=== PATIENT | male | born 1980 | race Caucasian/White ===

== ENCOUNTER 2016-12-23 02:58 | Emergency (ER) ==
[2016-12-23 03:28] VITALS: BP 170/109; TEMP 97.6; BMI 26.4
== END 2016-12-23 03:33 | disposition left against medical advice (07) ==
LOC: ED 02:58
DX: S99.912A Unspecified injury of left ankle, initial encounter (principal); S99.922A Unspecified injury of left foot, initial encounter; V09.9XXA Pedestrian injured in unspecified transport accident, initial encounter
CPT/HCPCS: 99281

== ENCOUNTER 2016-12-29 16:32 | Emergency (ER) ==
[2016-12-29] MEDS ORDERED: SODIUM CHLORIDE 1,000 ML IV STA (16:35)
[2016-12-29 16:38] VITALS: BP 151/108; TEMP 98.4; BMI 27.3
[2016-12-29 16:56] LABS: BASOPHILS # (AUTO) 0.1 K/uL (0-0.2); BASOPHILS % (AUTO) 0.4 % (0.0-3.0); EOSINOPHILS # (AUTO) 0.2 K/ul (0.0-0.7); EOSINOPHILS % (AUTO) 1.8 % (0.0-7.0); HEMATOCRIT 44.4 % (42.0-52.0); HEMOGLOBIN 15.6 g/dl (14.0-18.0); IMMATURE GRANULOCYTE % (AUTO) 0.4 % (0.0-5.0); MEAN CORPUSCULAR HEMOGLOBIN 31.5 pg (27.0-31.0); MEAN CORPUSCULAR HGB CONC 35.1 (31.8-35.4); MEAN CORPUSCULAR VOLUME 89.5 fl (80.0-94.0); MONOCYTES # (AUTO) 0.7 K/uL (0.4-2.0); MONOCYTES % (AUTO) 5.9 (0-10); NEUTROPHILS # (AUTO) 8.8 K/ul (2.0-6.9); NEUTROPHILS % (AUTO) 74.5; PLATELET COUNT 275 10^3/uL (140-440); RED BLOOD COUNT 4.96 10^6/ul (4.70-6.10); WHITE BLOOD COUNT 11.77 K/ul (4.2-10.2)
--- NOTE | 2016-12-29 17:09 | CT ---
EXAM: CT brain without contrast HISTORY: Seizure activity TECHNIQUE: CT of the brain without intravenous contrast FINDINGS: There is no acute hemorrhage midline shift or mass effect. No hydrocephalus or abnormal extra-axial fluid collection. No significant parenchymal attenuation abnormality. The bony cranium appears normal. The visualized paranasal sinuses are clear. Soft tissues without significant abnorm ality. IMPRESSION: 1. CT of the brain within normal limits.
[2016-12-29 17:10] LABS: BILIRUBIN,URINE Negative (NEGATIVE); KETONES,URINE Negative (NEGATIVE); LEUKOCYTE ESTERASE ,URINE Negative (NEGATIVE); NITRITE,URINE Negative (NEGATIVE); PH,URINE 5.5 (5-9); PROTEIN,URINE 3+ (NEGATIVE); URINE, BLOOD Trace-lysed (NEGATIVE)
[2016-12-29 17:14] LABS: ADD URINE MICROSCOPIC YES
[2016-12-29] MEDS ORDERED: MOTRIN SUSP PO STA (17:14)
[2016-12-29 17:16] LABS: ACETAMINOPHEN < 3 ug/ml (10-30); ALANINE AMINOTRANSFERASE 19 U/L (12-78); ALBUMIN 3.8 g/dL (3.4-5.0); ALBUMIN/GLOBULIN RATIO 1.23; ALKALINE PHOSPHATASE 90 U/L (50-136); ANION GAP 12.8; ASPARTATE AMINO TRANSFERASE 16 U/L (15-37); BLOOD UREA NITROGEN 17 mg/dL (7-18); BUN/CREATININE RATIO 10.96; CALCIUM 9.5 mg/dL (8.2-10.2); CARBON DIOXIDE 24 mmol/L (21-32); CHLORIDE 106 mmol/L (98-107); CREATINE KINASE 43 U/L; CREATININE 1.55 mg/dL (0.60-1.10); GLUCOSE 87 mg/dL (70-100); POTASSIUM 3.8 mmol/L (3.5-5.1); SALICYLATE < 5.0 mg/dL (2.8-20.0); SODIUM 139 mmol/L (136-145); TOTAL PROTEIN 6.9 g/dL (6.4-8.2)
--- NOTE | 2016-12-29 17:17 | CT ---
CT cervical spine without contrast HISTORY: Fall with seizure activity TECHNIQUE: CT of the cervical spine with multiplanar reformations. FINDINGS: Reformatted images demonstrate normal alignment with preservation of vertebral body heigh t. No significant degenerative change. No fracture seen on the axial or reformatted images. No acut e surrounding soft tissue abnormalitites. Lung apices are clear. IMPRESSION: No acute findings in the cervical spine.
[2016-12-29 17:19] LABS: COCAIN SCREEN,URINE NEGATIVE (NEGATIVE)
--- NOTE | 2016-12-29 17:25 | DI ---
Exam: Left ankle 3 views History: Injury and pain Findings/Impression: No significant raegan or articular abnormality. Negative exam.
--- NOTE | 2016-12-29 17:29 | CT ---
EXAM: CT scan thorax without contrast HISTORY: Chest pain, fall COMPARISON: None. FINDINGS: Contiguous axial images were obtained through the thorax without contrast utilizing 5-mm collimation Sagittal and coronal reconstructions were imaged and reviewed The thoracic inlet is unr emarkable. The cardiac silhouette is normal in size without pericardial effusion. The lungs are cl ear bilaterally.. There are multiple old healed right-sided rib fractures. There is bilateral gynec omastia. There is mild chronic-appearing wedge compression deformity T11. IMPRESSION: No acute intrathoracic findings.
--- NOTE | 2016-12-29 17:42 | ED.PDOC ---
General ED Provider: Dr. DELTA LORA-ER Chief Complaint: Seizure Stated Complaint: i had a seizure---my testicle hurts Time Seen by Physician: 17:40 Mode of Arrival: Walk-In Information Source: Patient Exam Limitations: No limitations Nursing and Triage Documentation Reviewed and Agree: Yes Neurological Complaint Exam - Seizure Complaint/Exam Onset/Duration: 30 min Symptoms Are: Resolved Timing: Intermittent Failed to Regain Consciousness: No Severity: Self-limited Location: All extremities Character: Generalized Aggravating: Reports: None Alleviating: Reports: None Associated Signs and Symptoms: Reports: Anxiety. Denies: Emotional distress, Impaired speech, Bladder incontinence, Bowel incontinence, Trauma, Illness, Vomiting, Lethargy, Apnea Related History: Reports: Similar episode SAH Risk Factors: Reports: None Meningitis Risk Factors: Reports: None SDH Risk Factors: Reports: Male Related Surgical History: Reports: None Carotid Bruit Present: No Cephalohematoma Present: No Tongue Bitten: No Neck Pain Present: No Glascow Coma Scale (see protocol): 15 Nystagmus Present: No Gag Reflex Present: Yes Speech: Present: Normal Findings Aphasia: Present: None Meningeal Signs Positive: No Focal Weakness: Present: None Focal Sensory Loss: Reports: None Gait: Normal Axhakp-sm-Ieni: Normal Findings Pronator Drift: Present: None Romberg Test Positive: No Babinski Sign: Negative Right, Negative Left Heel to Toe Normal: Yes Signs of Injury: Present: Normal findings Differential Diagnoses: Drug Withdrawal Review of Systems - Review Of Systems Constitutional: Reports: No symptoms Eyes: Reports: No symptoms Ears, Nose, Mouth, Throat: Reports: No symptoms Respiratory: Reports: No symptoms Cardiac: Reports: No symptoms GI: Reports: No symptoms : Reports: No symptoms Musculoskeletal: Reports: No symptoms Skin: Reports: No symptoms Neurological: Reports: Headache Endocrine: Reports: No symptoms Hematologic/Lymphatic: Reports: No symptoms All Other Systems: Reviewed and Negative Past Medical History - Past Medical History Endocrine: Reports: None Cardiovascular: Reports: Hypertension Respiratory: Reports: None Hematological: Reports: None Gastrointestinal: Reports: None Genitourinary: Reports: None Neuro/Psych: Reports: None Musculoskeletal: Reports: None Cancer: Reports: None - Surgical History General Surgical History: Reports: Unknown - Family History Family History: Reports: Unknown - Social History Smoking Status: Current every day smoker Hx Substance Use: No Alcohol Screening: Heavy Lives: With family Physical Exam - Physical Exam Appearance: Well-appearing, No pain distress, Well-nourished Eyes: MIKAYLA, EOMI, Conjunctiva clear ENT: Ears normal, Nose normal, Oropharynx normal Neck: Supple Respiratory: Airway patent, Breath sounds clear, Breath sounds equal, Respirations nonlabored Cardiovascular: RRR, Pulses normal, No rub, No murmur GI/: Soft, Nontender, No masses, Bowel sounds normal, No Organomegaly Musculoskeletal: Normal strength, ROM intact, No edema, No calf tenderness Skin: Warm, Dry, Normal color Neurological: Sensation intact, Motor intact, Reflexes intact, Cranial nerves intact, Alert, Oriented Psychiatric: Affect appropriate, Mood appropriate Interpretation - Radiology Interpretation Radiology Interpretation By: Radiologist Radiology Results: Negative Exam Interpreted: CT Scan - EKG Interpretation Time of EKG #1: 17:43 Rate: Tachy Rhythm: Sinus Ectopy: None [place]: [place] Critical Care Note - Critical Care Note Total Time (mins): 0 Course - Course Hematology/Chemistry: 12/29/16 16:40 12/29/16 16:40 Orders, Labs, Meds: Lab Review 12/29/16 12/29/16 16:40 16:50 WBC 11.77 H RBC 4.96 Hgb 15.6 Hct 44.4 MCV 89.5 MCH 31.5 H MCHC 35.1 RDW Coeff of [place] 13.6 Plt Count 275 Immature Gran % (Auto) 0.4 Neut % (Auto) 74.5 Lymph % (Auto) 17.0 [place] % (Auto) 5.9 Eos % (Auto) 1.8 Baso % (Auto) 0.4 Immature Gran # (Auto) 0.1 Neut # 8.8 H Lymph # 2.0 [place] # 0.7 Eos # 0.2 Baso # 0.1 D-Dimer (Manual) 296.75 Sodium 139 Potassium 3.8 Chloride 106 Carbon Dioxide 24 Anion Gap 12.8 BUN 17 Creatinine 1.55 H Estimated GFR (MDRD) 52.00 BUN/Creatinine Ratio 10.96 Glucose 87 Calcium 9.5 Total Bilirubin 0.80 AST 16 ALT 19 Alkaline Phosphatase 90 Total Creatine Kinase 43 Troponin I < 0.0100 Total Protein 6.9 Albumin 3.8 Globulin 3.1 Albumin/Globulin Ratio 1.23 Urine Color Yellow Urine Clarity Clear Urine pH 5.5 Ur Specific [place] 1.015 Urine Protein 3+ Urine Glucose (UA) Negative Urine Ketones Negative Urine Blood Trace-lysed Urine Nitrite Negative Urine Bilirubin Negative Urine Urobilinogen 0.2 Ur Leukocyte Esterase Negative Urine Microscopic RBC 0-2 Ur Squamous Epith Cells Not present Salicylate Level mg/dL < 5.0 Urine Opiates Screen Negative Ur Oxycodone Screen Negative Urine Methadone Screen Negative Ur Propoxyphene Screen Negative Acetaminophen < 3 L Ur Barbiturates Screen Negative U Tricyclic Antidepress Negative Ur Phencyclidine Scrn Negative Ur Amphetamine Screen Negative U Methamphetamines Scrn Negative U Benzodiazepines Scrn Positive Urine Cocaine Screen Negative U Cannabinoids Screen Negative Plasma/Serum Alcohol < 10.0 Orders Category Date Time Status EKG-(ED ONLY) Stat CARDIO 12/29/16 16:35 Completed 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 [ED 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] .ONCE EMERGENCY 12/29/16 16:36 Active ED IV/MEDIPORT/POWERPORT .ONCE EMERGENCY 12/29/16 16:35 Active ACETAMINOPHEN Stat LAB 12/29/16 16:40 Completed BLOOD ALCOHOL Stat LAB 12/29/16 16:40 Completed CBC W/ AUTO DIFF Stat LAB 12/29/16 16:40 Completed COMPREHENSIVE METABOLIC PANEL Stat LAB 12/29/16 16:40 Completed CREATINE KINASE Stat LAB 12/29/16 16:40 Completed D-DIMER Stat LAB 12/29/16 16:40 Completed SALICYLATE Stat LAB 12/29/16 16:40 Completed TROPONIN I Stat LAB 12/29/16 16:40 Completed URINALYSIS C & S IF INDICATED Stat LAB 12/29/16 16:50 Completed URINE DRUG SCREEN (RAPID FOR ED) [DRUG SCREEN, URINE, LAB 12/29/16 16:50 Completed RAPID] Stat 0.9 % Sodium Chloride [Saline Flush] MEDS 12/29/16 16:35 Ordered 1 syr IVF PRN PRN Ibuprofen Susp [Motrin Susp] MEDS 12/29/16 17:14 Discontinued 800 mg PO ONCE STA Lorazepam Inj [Ativan] MEDS 12/29/16 17:49 Discontinued 1 mg IVP ONCE STA Sodium Chloride 0.9% [Sodium Chloride] 1,000 ml MEDS 12/29/16 16:35 Active IV 100 mls/hr ANKLE, LEFT MIN 3 VIEWS Stat RADS 12/29/16 16:[address] CERVICAL SPINE W/O CONTRAST Stat RADS 12/29/16 16:[address] CHEST W/O CONTRAST Stat RADS 12/29/16 16:[address] HEAD W/O CONTRAST Stat RADS 12/29/16 16:50 Completed Medications Generic Name Dose Route Start Last Admin Trade Name Freq PRN Reason Stop Dose Admin Sodium Chloride 1,000 mls @ 100 mls/hr 12/29/16 16:35 12/29/16 17:12 Sodium Chloride IV 12/30/16 02:34 100 mls/hr .Q10H STA Administration Sodium Chloride 1 syr 12/29/16 16:35 Saline Flush IVF PRN PRN To flush IV Discontinued Medications Generic Name Dose Route Start Last Admin Trade Name Freq PRN Reason Stop Dose Admin Ibuprofen 800 mg 12/29/16 17:14 12/29/16 17:30 Motrin Susp PO 12/29/16 17:15 800 mg ONCE STA Administration Lorazepam 1 mg 12/29/16 17:49 12/29/16 17:54 Ativan IVP 12/29/16 17:50 1 mg ONCE STA Administration Vital Signs: Temp Pulse Resp BP Pulse Ox 12/29/16 16:33 98.4 F 95 H 16 151/108 H 100 Departure - Departure Time of Disposition: 17:43 Disposition: TSF SHORT-TRM HOSP Discharge Problem: Seizure, Testicular pain Instructions: Nonepileptic Seizures (ED) Condition: Good Pt referred to PMD for follow-up: No Allergies/Adverse Reactions: Allergies tramadol Adverse Reaction (Verified 12/29/16 16:37) Home Medications: Ambulatory Orders Hydroxyzine HCl 25 mg PO BID 12/29/16 Lisinopril/Hydrochlorothiazide [Lisinopril-Hctz 10-12.5 mg Tab] 1 each PO DAILY 12/29/16 Transfer Form Completed: Yes Disposition Discussed With: Patient, Other (police)
[2016-12-29] MEDS ORDERED: ATIVAN IVP STA (17:49)
[2016-12-29] MEDS ORDERED: MORPHINE 2 MG/ML SYRINGE IVP STA (18:05)
== END 2016-12-29 18:37 | disposition short-term general hospital (02) ==
LOC: ED 16:32
DX: R56.9 Unspecified convulsions (principal); N50.819 Testicular pain, unspecified; R51 Headache; I10 Essential (primary) hypertension; F17.210 Nicotine dependence, cigarettes, uncomplicated
CPT/HCPCS: 36415; 80053; 80306; 80307; 81001; 82550; 84484; 85025; 85379; 93005; 93010; 96374; 96375; 99285

== ENCOUNTER 2016-12-29 18:35 | Outpatient (CLI) ==
[2016-12-29 16:38] VITALS: BMI 27.3
== END 2016-12-29 18:36 ==
LOC: AMBL 18:35
PROVIDERS: ATTEND Family Medicine
DX: N50.82 Scrotal pain (principal); R56.9 Unspecified convulsions